=== PATIENT | male | born 1965 ===

== ENCOUNTER 2025-11-14 07:40 | Outpatient (REF) | payer OTHER, SELFPAY ==
--- OUTSIDE RECORDS SUMMARY | 2025-11-14 07:45 | XMS_ITS | Clinical Summary ---
Author Organization Melinda SABIA [facility] ity Address [address] [place] [address] Care Team Providers Care Police Manager Name Role Phone Unavailable Primary Care Provider Unavailabl e Social History Tobacco Use Types Packs/Day Years Used Date Smoking Tobacco: Never Assessed Sex and Gender Information Value Date Recorded Sex Assigned at Not on file Legal Sex Male 3:51 AM EST Gender Identity Not on file Sexual Orientation Not on file Plan of Treatment Health Maintenance Due Date Last Done Comments DTaP,Tdap,and Td Vaccines (1 - Tdap) 1984 Pneumococcal Vaccine: 50+ Ye ars (1 of 1 - PCV) 2015 Zoster Vaccines (1 of 2) 2015 Depression Screening 11/15/2024 COVID-19 Vaccine (1 - 2024-2 6 season) 2025 Influenza Vaccine (#1) 2025 RSV Immunization Adult Patie nts (1 - 1-dose 75+ series) 2040 HIB Vaccines Aged Out No longer eligi ble based on patient's age to complete this topic HPV Vaccines Aged Out No longer eligi ble based on patient's age to complete this topic Hepatitis A Vaccines Aged Out No long er eligible based on patient's age to complete this topic Hepatitis B Vaccines Aged Out No long er eligible based on patient's age to complete this topic IPV Vaccines Aged Out No longer eligi ble based on patient's age to complete this topic MMR Vaccines Aged Out No longer eligi ble based on patient's age to complete this topic Meningococcal ACWY Vaccine Aged Out N o longer eligible based on patient's age to complete this topic Meningococcal B Vaccine Aged Out No l onger eligible based on patient's age to complete this topic RSV Immunization Patients Un ghislaine 20 months Aged Out No longer eligible b ased on patient's age to complete this topic Varicella Vaccines Aged Out No longer eligible based on patient's age to complete this topic
--- OUTSIDE RECORDS SUMMARY | 2025-11-14 07:45 | XMS_ITS ---
Author Name Lamar Perez Address Unknown Organization [facility] Care Team Providers Care Craniologist Name Role Phone Unavailable Primary Care Physician Unavailab le History Of Present Illness 1. This is a 60 year old male who is following up for lentigines (Other melanin hyperpigmentation).He was seen on September 04, 2025, at which time he was prescribed Triamcinolone acetonide 0.1 % topical cream (Apply a thin layer twice a day for 2 weeks and then one week off, repeat if needed. Do not use on face or body folds.) and the following treatment recommendations were given: Plan: :Rx today:Triamcinolone acetonide 0.1 % topical creamFU in 8 weeks for reassessment.Since then, the patient states the lentigines is unchanged.The patient presents for focused visit and further evaluation andmanagement.Today the patient reports: Modifying factors: unchanged with medication. Quality: constant, no pain, no swelling, not malodorous, itching, no redness, and redness.The patient followed the treatment plan as directed. 2. This is a 60 year old male who is following up for dermatitis unspecified on the right proximal radial dorsal forearm. He was seen on August 23, 2025, at which time Biopsy by Shave Method was performed. 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 We recommended the following: Schedule : visit to recheck site and discuss options.The patient presents for further evaluation and management and focused visit.Today the patient reports: Itch Intensity 4.0. Timing: constant. Quality: itching, no swelling, no drainage, redness, not malodorous, and constant. Allergies, Adverse Reactions, Alerts Substance RxNorm Reaction(s) Severity Status Start Da te beef derived (bovine) unspecified active dog dander unspecified active Medications Medication Generic Name RxNorm Strength Strength Unit Route Dose Dose Form Frequency Date Started Date Ended Status Indication Sig clobetasol clobetas ol 504975 0.05 % Topica l cream 11/13/20 25 active Appl y a thin laye r to arms , ches t and shou lder s x BID for 2 week s on, 1 week off. Repe at as need ed. hydrocortis one hydrocor tisone 669084 2.5 % Topica l cream as needed 03/13/20 25 active Appl y a thin laye r twic e a day to the affe cted area s for 2 week s and then one week off, repe at if need ed. Do not use on face or body fold s. triamcinolo ne acetonide triamcin olone acetonid e 9948932 0.1 % Topica l cream 09/04/20 25 active Appl y a thin laye r twic e a day for 2 week s and then one week off, repe at if need ed. Do not use on face or body fold s. albuterol sulfate 4568917 90 mcg/actua tion Inhala tion 2 HFA Aeros ol Inhal er as needed active epinephrine 0129089 0.3 mg/0.3 mL Inject ion 1 Auto- Injec tor as needed active acetaminoph en 104463 500 mg Oral 1 table t as needed active aspirin 839267 81 mg Oral 1 table t, delay ed relea se (ente yakov noel) as needed active atorvastati n 737978 40 mg Oral 1 table t daily active cyanocobala min (vitamin B-12) 528817 1,000 mcg Oral 1 table t daily active famotidine 025516 20 mg Oral 1 table t daily active fluoxetine 633360 40 mg Oral 1 capsu le daily active lamotrigine 705443 200 mg Oral 1 tabl e t daily active lisinopril 003429 30 mg Oral 1 table t daily active metformin 201703 500 mg Oral 1 table t daily active omeprazole 353508 20 mg Oral 1 capsu le,de layed relea se (ente yakov webster d) daily active pregabalin 773486 100 mg Oral 1 capsu le daily active Problems Problem Code Type Status Date of Diagnosis Da te of Resolution Prurigo nodularis (disorder) 52897693(SNO MED) Diagnosis active 03/13/2025 Disorder of pigmentation (disorder) 365864268(SN OMED) Diagnosis active 03/13/2025 Anxiety disorder (disorder) 231327532(SN OMED) Problem active Arthritis (disorder) 0767532(SNOM ED) Problem active Asthma (disorder) 359244356(SN OMED) Problem active Depressive disorder (disorder) 34961204(SNO MED) Problem active Diabetes mellitus (disorder) 23950667(SNO MED) Problem active Increased blood pressure (finding) 09047436(SNO MED) Problem active Inflammatory dermatosis (disorder) 537358738(SN OMED) Diagnosis active 08/23/2025 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 Office phonenumber is [phone]. Office fax number is [phone]. 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.8) [facility] 11/13/2025 19:10:00 [facility] [id number] Reason For Referral No data Procedures Procedure Date Removal of suture (procedure) 09/04/2025 12:00 am [place] Punch biopsy (procedure) 08/23/2025 12:0 0 am UTC Shave biopsy (procedure) 08/23/2025 12:0 0 am UTC Documentation of past medical history (p rocedure) Documentation of past medical history (p rocedure) Documentation of past medical history (p rocedure) Documentation of past medical history (p rocedure) Documentation of past medical history (p rocedure) Review Of Systems Provider reviewed on Nov 13, 2025.A focused review of systems was performed including Integumentary.No Problems With Healing And No Problems With Scarring (hypertrophic Or Keloid). Assessment 1.Neoplasm of Uncertain BehaviorAdditional NotesPrescription Medication Management: Plan - :Pt presents today after using topical Triamcinolone without Improvement. Discontinue: Triamcinolone acetonide 0.1 % topical creamRx today: Clobetasol 0.05% topical cream x BID for 2 weeks on, 1 week off. Repeat as needed. FU in 8 weeks for reassessment;.Prescription: clobetasol 0.05 % topical cream TPMedication Counseling2.Inflammatory PapuleCounseling Plan of Care Future visit for 01/08/2026 - Follow up in 8 weeks for: Focused Visit - 10 minutes. Other Instructions: Recheck arms chest and shoulders. Code Detail Instructions 438133 clobetasol 0.05 % topical cream Apply a thin layer to arms, chest and shoulders x BID for 2 weeks on, 1 week off. Repeat as needed. 2010814 triamcinolone aceton kj 0.1 % topical cream Apply a thin layer twice a day for 2 weeks and then one week off, repeat if needed. Do not use on face or body folds. 751063 hydrocortisone 2.5 % topical cre am Apply a thin layer twice a day to the affected areas for 2 weeks and then one week off, repeat if needed. Do not use on face or body folds. Instructions * Topical Steroids Counseling: I discussed with the patient that prolonged use of topical steroids can result in the increased appearance of superficial blood vessels (telangiectasias), lightening (hypopigmentation) and thinning of the skin (atrophy). Patient understands to avoid using high potency steroids in skin folds, the groin or the face. The patient verbalized understanding of the proper useand possible adverse effects of topical steroids. All of the patient's questions and concerns were addressed. * I counseled the patient regarding the following:Inflammatory Papule Instructions: Localized inflammatory papules can be treated with intralesional steroid injections or drainage. Topical or systemic antibiotics can also be used.Expectations: An isolated inflammatory papule occurs secondary to infect ion or plugging of the hair follicle. It is easily treatable.Contact office if: Your lesion fails to resolve with treatment or worsens. Social History Code Activity Start Date End Date [id number] (SNOMED) Never smoker Sex Male Sexual orientation Don't Know Gender identity Unspecified Vital Signs No data Insurances Coverage Status Coverage Type Relationship to Subscriber Member Identifier Subscriber Identifier Group Identifier Payer Identifier Active Self [id number] [facility] [id number]
== END 2025-11-14 07:41 | disposition home or self-care (01) ==
LOC: HO.SH 07:40
PROVIDERS: Visit Provider Internal Medicine
DX: H91.93 Unspecified hearing loss, bilateral (principal)
CPT/HCPCS: 92557; 92567